=== PATIENT | male | born 1990 | race African-American/Black ===

== ENCOUNTER 2023-01-07 23:41 | Emergency (ER) | payer BC ==
[~2023-01-07] VITALS: Ht 185.4 cm; Wt 123.8 kg
[2023-01-07] MEDS ORDERED: IBUPROFEN 600 MG TAB PO STA (23:55)
[2023-01-08] MEDS ORDERED: AMOXICILLIN/CLAVULANATE K 875 MG TAB PO STA (00:05)
[2023-01-08] MEDS ORDERED: IBUPROFEN 600 MG TAB ONE (00:12)
[2023-01-08] MEDS ORDERED: CIPRO HC OTIC S10 ML LEFT EAR (00:17)
[2023-01-08] MEDS ORDERED: AMOXICILLIN500 MG PO (00:17)
[2023-01-08] MEDS ORDERED: AMOXICILLIN/CLAVULANATE K 875 MG TAB ONE (00:28)
[2023-01-08 00:53] VITALS: BP 134/82
[2023-01-08] MEDS ORDERED: CORTISPORIN-TC10 M1 LEFT EAR (14:54)
== END 2023-01-08 00:30 | disposition home or self-care (01) ==
LOC: FSED 23:56
DX: H60.92 Unspecified otitis externa, left ear (principal); J02.9 Acute pharyngitis, unspecified
CPT/HCPCS: 99283

== ENCOUNTER 2023-03-22 19:27 | Emergency (ER) | payer BC ==
[~2023-03-22] VITALS: Ht 185.4 cm; Wt 113.4 kg
[~2023-03-22 19:27] MED LIST: AMOXICILLIN500 MG PO; CIPRO HC OTIC S10 ML LEFT EAR; CORTISPORIN-TC10 M1 LEFT EAR
[2023-03-22 19:30] VITALS: O2SAT 100
[2023-03-22] MEDS ORDERED: AZITHROMYCIN250 MG PO (19:45)
[2023-03-22] MEDS ORDERED: PREDNISONE20 MG PO (19:45)
== END 2023-03-22 19:54 | disposition home or self-care (01) ==
LOC: FSED 19:31
DX: H66.91 Otitis media, unspecified, right ear (principal)
CPT/HCPCS: 99282